=== PATIENT | male | born 1945 | race Caucasian/White ===

== ENCOUNTER 2020-12-03 08:12 | Emergency (ER) | payer OTHER ==
[2020-12-03] MEDS ORDERED: Dextrose 5%-0.9% NaCl 1,000 ML IV SCH (08:45)
--- NOTE | 2020-12-03 08:45 | EDM.PDOC ---
ED HPI GENERAL MEDICAL PROBLEM - General Chief Complaint: Neurological Problem Stated Complaint: COLD SWEATS, FATIGUE,DIZZY Time Seen by Provider: 12/03/20 08:37 Source of Information: Reports: Patient History Limitations: Reports: No Limitations - History of Present Illness INITIAL COMMENTS - FREE TEXT/NARRATIVE: 75-year-old male presents to the ED for evaluation of just generally not feeling well. He reports feeling lightheaded dizzy which I interpreted as orthostatic hypotension this morning. Associated cold sweats with mild diaphoresis. This is more last night and this morning. Feels generally weak. No recent changes to any of his medications. Patient is an asthmatic/COPD patient and uses Azmacort first thing in the morning and albuterol inhaler as a rescue inhaler as needed. He is on amlodipine which he takes in the morning with half a tablet of metoprolol and the other half of metoprolol in the evening. Patient has BPH with elevated PSA has had biopsies x2 with no findings of cancer. Patient admits that he does feel anxious about traveling at this point time. They are traveling from [facility] with his son and daughter. He is not doing much of the driving. He states he felt very anxious last evening and did not sleep at all. He has some insight that he is feeling overly anxious which has not been a problem in the past. He has taken his medications this morning but has not eaten any breakfast. I cannot get any history of vertigo or associated nausea or vomiting. Of note patient has completed both of his COVID- 19 vaccines with the last one given in August of this year. Onset: Sudden Onset Date: 12/02/20 (Symptoms began last evening after 1900 hrs.) Duration: Hour(s):, Constant, Other (Unable to sleep all night due to feeling anxious.) Location: Reports: Generalized (Neurolysed anxiety with feeling of cold sweats and weakness. Associated dizziness with no vertigo.) Quality: Reports: Other (Primarily dizziness which I interpreted as orthostatic hypotension) Severity: Moderate Improves with: Reports: None Worsens with: Reports: None Context: Denies: Activity, Exercise, Lifting, Sick Contact, Trauma, Other Associated Symptoms: Reports: Fever/Chills (Sweats.), Loss of Appetite, Malaise, Weakness. 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) (None and no new medications have been introduced into his treatment plan.) - Related Data Allergies Allergy/AdvReac Type Severity Reaction Status Date / Time [id number]-Cgr-Oao Reductase Allergy Cannot Verified 12/03/20 08:26 Inhibitor Remember Home Meds: Home Meds LORazepam [Ativan] 1 mg PO DAILY PRN #10 tablet 12/03/20 [Rx] Past Medical History Cardiovascular History: Reports: High Cholesterol, Hypertension Respiratory History: Reports: Asthma, COPD Neurological History: Reports: Neuropathy, Peripheral Social & Family History - Tobacco Use Tobacco Use Status *Q: Never Tobacco User - Recreational Drug Use Recreational Drug Use: No - Living Situation & Occupation Living situation: Reports: Occupation: Retired Social History Comment: Currently traveling with his son and daughter [place] from [facility] ROS GENERAL - Review of Systems Review Of Systems: See Below Constitutional: Reports: Malaise, Weakness, Fatigue, Diaphoresis (Cold sweats.), Decreased Appetite. Denies: Fever, Chills, Weight Loss HEENT: Reports: Glasses Respiratory: Reports: Shortness of Breath, Wheezing, Cough. Denies: Pleuritic Chest Pain, Sputum, Hemoptysis, Other Cardiovascular: Reports: Blood Pressure Problem. Denies: Chest Pain (Occasional), Claudication, Edema, Lightheadedness, Orthopnea Endocrine: Reports: No Symptoms GI/Abdominal: Reports: No Symptoms. Denies: Abdominal Pain, Anorexia, Black Stool, Bloody Stool, Constipation, Diarrhea, Decreased Appetite, Difficulty Swallowing, Distension, Flatus, Hematemesis, Hematochezia, Mucous in Stool, Nausea, Stool Incontinence, Vomiting : Reports: Frequency, Other (Nocturia x2. Chronically elevated PSA with biopsies of his prostate done twice with no positive findings) Musculoskeletal: Denies: Neck Pain, Shoulder Pain, Arm Pain, Back Pain, Hand Pain, Leg Pain, Foot Pain, Joint Pain, Joint Swelling, Muscle Pain Skin: Reports: No Symptoms Neurological: Reports: Dizziness (Feeling lightheaded), Weakness. Denies: Confusion, Headache, Numbness, Paresthesia, Pre-Existing Deficit, Seizure, Syncope, Tingling, Tremors, Trouble Speaking, Difficulty Walking, Change in Speech, Gait Disturbance, Other Psychiatric: Reports: Anxiety Hematologic/Lymphatic: Reports: No Symptoms (Admits to feeling anxious.) Immunologic: Reports: No Symptoms ED EXAM, GENERAL - Physical Exam Exam: See Below Exam Limited By: No Limitations General Appearance: Alert, WD/WN, Anxious, Other (Mildly anxious. Temperature is 36.0. Heart rate 58 in sinus respiratory is 18 with O2 sats of 97%. Initial BP was elevated 187/84 but second 1 came down to 144/80.) Eye Exam: Bilateral Eye: Normal Inspection (No scleral icterus or blepharal pallor.), PERRL Ears: Normal TMs Throat/Mouth: Normal Inspection, Normal Lips, Normal Oropharynx, Other Head: Atraumatic, Normocephalic (Tongue is mildly dry.) Neck: Normal Inspection, Supple, Non-Tender, Full Range of Motion. No: Carotid Bruit, Lymphadenopathy (L), Lymphadenopathy (R) Respiratory/Chest: No Respiratory Distress, Lungs Clear, Normal Breath Sounds, No Accessory Muscle Use. No: Wheezing Cardiovascular: Normal Peripheral Pulses, Regular Rate, Rhythm, No Edema, No Gallop, No Murmur, No Rub Peripheral Pulses: 2+: Carotid (L), Carotid (R), Posterior Tibial (L), Posterior Tibial (R), Dorsalis Pedis (L), Dorsalis Pedis (R) GI/Abdominal: Normal Bowel Sounds, Soft, Non-Tender, No Organomegaly, No Abnormal Bruit, No Mass, Pelvis Stable Back Exam: Normal Inspection, Full Range of Motion. No: CVA Tenderness (L), CVA Tenderness (R) Extremities: Normal Inspection, Normal Range of Motion, Non-Tender, No Pedal Edema Neurological: Alert, Oriented, CN II-XII Intact, Normal Cognition, No Motor/Sensory Deficits Psychiatric: Anxious Skin Exam: Warm (Mildly anxious.), Dry, Intact, Normal Color, No Rash #1 Interpretation EKG Date: 12/03/20 Time: 08:57 Rhythm: Other Rate (Beats/Min): 57 [place]: Normal P-Wave: Present QRS: Normal ST-T: Normal QT: Normal EKG Interpretation Comments: Normal ECG Course - Vital Signs Last Recorded V/S: Last Vital Signs Temp 36.0 C L 12/03/20 08:22 Pulse 58 L 12/03/20 08:22 Resp 18 12/03/20 08:22 BP 187/84 H 12/03/20 08:22 Pulse Ox 97 12/03/20 08:22 - Orders/Labs/Meds Orders: Active Orders 24 hr Category Date Time Status EKG Documentation Completion [RC] STAT Care 12/03/20 08:46 Active Dextrose 5%-0.9% NaCl [Dextrose 5%-Normal Saline] 1,000 Med 12/03/20 08:45 Active ml IV ASDIRECTED Medication Orders Dextrose/Sodium Chloride (Dextrose 5%-Normal Saline) 1,000 mls @ 500 mls/hr IV ASDIRECTED NILSON Last Admin: 12/03/20 09:04 Dose: 500 mls/hr Documented by: IGGY Labs: Laboratory Tests 12/03/20 12/03/20 12/03/20 Range/Units 08:35 09:09 09:09 WBC 7.61 (4.23-9.07) K/mm3 RBC 4.73 (4.63-6.08) M/mm3 Hgb 14.7 (13.7-17.5) gm/dl Hct 41.4 (40.1-51.0) % MCV 87.5 (79.0-92.2) fl MCH 31.1 (25.7-32.2) pg MCHC 35.5 (32.2-35.5) g/dl RDW Std Deviation 40.5 (35.1-43.9) fL Plt Count 162 L (163-337) K/mm3 MPV 10.6 (9.4-12.3) fl Neut % (Auto) 63.3 (34.0-67.9) % Lymph % (Auto) 26.7 (21.8-53.1) % [place] % (Auto) 6.7 (5.3-12.2) % Eos % (Auto) 2.6 (0.8-7.0) Baso % (Auto) 0.3 (0.1-1.2) % Neut # (Auto) 4.82 (1.78-5.38) K/mm3 Lymph # (Auto) 2.03 (1.32-3.57) K/mm3 [place] # (Auto) 0.51 (0.30-0.82) K/mm3 Eos # (Auto) 0.20 (0.04-0.54) K/mm3 Baso # (Auto) 0.02 (0.01-0.08) K/mm3 PT 11.3 (9.7-12.0) SECONDS INR 1.06 APTT 26.2 (21.7-31.4) SECONDS Sodium (136-145) mEq/L Potassium (3.5-5.1) mEq/L Chloride (98-107) mEq/L Carbon Dioxide (21-32) mEq/L Anion Gap (5-15) BUN (7-18) mg/dL Creatinine (0.7-1.3) mg/dL Est Cr Clr Drug Dosing mL/min Estimated GFR (MDRD) (>60) mL/min BUN/Creatinine Ratio (14-18) Glucose (70-99) mg/dL Calcium (8.5-10.1) mg/dL Magnesium (1.8-2.4) mg/dL Total Bilirubin (0.2-1.0) mg/dL AST (15-37) U/L ALT (16-63) U/L Alkaline Phosphatase (46-116) U/L Troponin I (0.00-0.056) ng/mL C-Reactive Protein (<1.0) mg/dL NT-Pro-B Natriuret Pep (0-125) pg/mL Total Protein (6.4-8.2) g/dl Albumin (3.4-5.0) g/dl Globulin gm/dL Albumin/Globulin Ratio (1-2) Urine Color Yellow (Yellow) Urine Appearance Clear (Clear) Urine pH 7.5 (5.0-8.0) Ur Specific [place] 1.020 (1.005-1.030) Urine Protein Negative (Negative) Urine Glucose (UA) Negative (Negative) Urine Ketones Negative (Negative) Urine Occult Blood Negative (Negative) Urine Nitrite Negative (Negative) Urine Bilirubin Negative (Negative) Urine Urobilinogen 0.2 (0.2-1.0) Ur Leukocyte Esterase Negative (Negative) Urine RBC 0-5 (0-5) /hpf Urine WBC Not seen (0-5) /hpf Ur Squamous Epith Cells Not seen (0-5) /hpf Urine Bacteria Not seen (FEW) /hpf Urine Mucus Not seen (FEW) /hpf 12/03/20 12/03/20 Range/Units 09:09 09:09 WBC (4.23-9.07) K/mm3 RBC (4.63-6.08) M/mm3 Hgb (13.7-17.5) gm/dl Hct (40.1-51.0) % MCV (79.0-92.2) fl MCH (25.7-32.2) pg MCHC (32.2-35.5) g/dl RDW Std Deviation (35.1-43.9) fL Plt Count (163-337) K/mm3 MPV (9.4-12.3) fl Neut % (Auto) (34.0-67.9) % Lymph % (Auto) (21.8-53.1) % [place] % (Auto) (5.3-12.2) % Eos % (Auto) (0.8-7.0) Baso % (Auto) (0.1-1.2) % Neut # (Auto) (1.78-5.38) K/mm3 Lymph # (Auto) (1.32-3.57) K/mm3 [place] # (Auto) (0.30-0.82) K/mm3 Eos # (Auto) (0.04-0.54) K/mm3 Baso # (Auto) (0.01-0.08) K/mm3 PT (9.7-12.0) SECONDS INR APTT (21.7-31.4) SECONDS Sodium 140 (136-145) mEq/L Potassium 3.9 (3.5-5.1) mEq/L Chloride 104 (98-107) mEq/L Carbon Dioxide 24 (21-32) mEq/L Anion Gap 15.9 H (5-15) BUN 12 (7-18) mg/dL Creatinine 0.8 (0.7-1.3) mg/dL Est Cr Clr Drug Dosing 79.56 mL/min Estimated GFR (MDRD) > 60 (>60) mL/min BUN/Creatinine Ratio 15.0 (14-18) Glucose 118 H (70-99) mg/dL Calcium 8.8 (8.5-10.1) mg/dL Magnesium 2.2 (1.8-2.4) mg/dL Total Bilirubin 0.9 (0.2-1.0) mg/dL AST 21 (15-37) U/L ALT 28 (16-63) U/L Alkaline Phosphatase 65 (46-116) U/L Troponin I < 0.017 (0.00-0.056) ng/mL C-Reactive Protein <0.2 (<1.0) mg/dL NT-Pro-B Natriuret Pep 50 (0-125) pg/mL Total Protein 7.4 (6.4-8.2) g/dl Albumin 4.0 (3.4-5.0) g/dl Globulin 3.4 gm/dL Albumin/Globulin Ratio 1.2 (1-2) Urine Color (Yellow) Urine Appearance (Clear) Urine pH (5.0-8.0) Ur Specific [place] (1.005-1.030) Urine Protein (Negative) Urine Glucose (UA) (Negative) Urine Ketones (Negative) Urine Occult Blood (Negative) Urine Nitrite (Negative) Urine Bilirubin (Negative) Urine Urobilinogen (0.2-1.0) Ur Leukocyte Esterase (Negative) Urine RBC (0-5) /hpf Urine WBC (0-5) /hpf Ur Squamous Epith Cells (0-5) /hpf Urine Bacteria (FEW) /hpf Urine Mucus (FEW) /hpf Meds: Medications Generic Name Dose Route Start Last Admin Trade Name Freq PRN Reason Stop Dose Admin Dextrose/Sodium Chloride 1,000 mls @ 500 mls/hr 12/03/20 08:45 12/03/20 09:04 Dextrose 5%-Normal Saline IV 500 mls/hr ASDIRECTED NILSON Administration Discontinued Medications Generic Name Dose Route Start Last Admin Trade Name Freq PRN Reason Stop Dose Admin Lorazepam 0.5 mg 12/03/20 08:59 12/03/20 09:17 Lorazepam 2 Mg/Ml Sdv IVPUSH 12/03/20 09:00 0.5 mg ONETIME ONE Administration - Radiology Interpretation Free Text/Narrative:: 75-year-old male presents to the ED with nonspecific symptoms of feeling dizzy, lightheaded associate with cold sweats and diaphoresis last evening. Could not sleep last night and admits that he does feel anxious. He is traveling with his son and daughter from [facility] [place]. He is not doing any of the driving. No new medications. He has a history of hypertension and COPD/asthma using Azmacort and albuterol as needed and amlodipine and metoprolol for blood pressure control. Denies fever or chills. Denies nausea vomiting. Denies feeling hungry almost lost his appetite. Patient does appear tired on initial exam. Examination was otherwise normal with no respiratory wheezing. Cardiac function appears normal. He will have routine labs performed with the chest x- ray and ECG. IV will be D5 normal saline at 500 mils per hour since he is not had any breakfast yet this morning. Will give him Ativan 0.5mg IV for anxiety relief. - Re-Assessments/Exams Free Text/Narrative Re-Assessment/Exam: 12/03/20 09:45 Hematology reveals a normal white count at 7.61. Differential shows 63% neutrophils. Hemoglobin is 14.7 with hematocrit of 41.4. Platelet count 262,000 slightly low. Urinalysis is negative with no signs of infection. Portable chest x-ray reveals normal mediastinum and cardiac silhouette. The lungs suggest a very mild diffuse vascular congestion pattern with no pleural effusion. Possibly magnified per portable technique no pneumothorax. Lung parenchyma are otherwise clear. 12/03/20 10:12 Chemistry reveals a sodium of 140 and a potassium of 3.9. Chloride is 104 the bicarb of 24. Anion gap is minimally elevated at 15.9. BUN is 12 with a creatinine of 0.8 and a GFR greater than 60. Glucose 118. Calcium 8.8. Magnesium 2.2. Liver function normal. Troponin I is less than 0.017. C- reactive protein is less than 0.2. BNP is 50. Total protein 7.4 with an albumin fraction of 4.0. Departure - Departure Time of Disposition: 10:47 Disposition: Home, Self-Care 01 Condition: Fair Clinical Impression: Fluid volume depletion, Anxiety about health - Discharge Information *PRESCRIPTION DRUG MONITORING PROGRAM REVIEWED*: Not Applicable *COPY OF PRESCRIPTION DRUG MONITORING REPORT IN PATIENT NICOLAS: Not Applicable Prescriptions: LORazepam [Ativan] 1 mg PO DAILY PRN #10 tablet PRN Reason: Insomnia Referrals: PCP,Not In Area [Primary Care Provider] - Forms: ED Department Discharge Additional Instructions: Evaluation in the emergency room today in regards to generally not feeling well with shortness of breath cold sweats dizziness and generalized weakness. Not able to sleep at all last night due to insomnia and perceived anxiety about health particular with traveling far from home. Complete lab work-up revealed no evidence of heart related illness. Kidneys and liver are functioning normally. Chest x-ray was normal. You felt better after IV fluids suggesting that you did have some volume depletion. Suggest drinking a Gatorade or 2 daily while traveling which will maintain hydration with full electrolyte balance. I have written a prescription for Ativan or lorazepam 1 mg tablets. May take 1/2 to 1 tablet at bedtime as needed to relieve anxiety and aid sleep as needed. Follow-up with personal physician when you get back home if any further problems occur. Sepsis Event Note (ED) - Evaluation Sepsis Screening Result: No Definite Risk - Focused Exam Vital Signs: Vital Signs Temp Pulse Resp BP Pulse Ox 12/03/20 08:22 36.0 C L 58 L 18 187/84 H 97 - My Orders Last 24 Hours: My Active Orders 12/03/20 08:45 Dextrose 5%-0.9% NaCl [Dextrose 5%-Normal Saline] 1,000 ml IV ASDIRECTED 12/03/20 08:46 EKG Documentation Completion [RC] STAT - Assessment/Plan Last 24 Hours: My Active Orders 12/03/20 08:45 Dextrose 5%-0.9% NaCl [Dextrose 5%-Normal Saline] 1,000 ml IV ASDIRECTED 12/03/20 08:46 EKG Documentation Completion [RC] STAT
[2020-12-03] MEDS ORDERED: LORazepam 2 MG/ML SDV IVPUSH ONE (08:59)
--- NOTE | 2020-12-03 09:39 | CR ---
Chest: Portable view of the chest was obtained. Comparison: No prior chest imaging is available. Heart size and mediastinum are normal. Lungs are clear with no acute parenchymal change. Minimal deformity of the left clavicle is seen most likely representing old healed fracture. Scattered endplate spurring is noted within the spine. No acute osseous abnormality is appreciated. Impression: 1. Nothing acute is seen on portable chest x-ray. Diagnostic code #2
== END 2020-12-03 10:58 | disposition home or self-care (01) ==
LOC: JD.ED 08:12
DX: F41.9 Anxiety disorder, unspecified (principal); E86.9 Volume depletion, unspecified; E78.00 Pure hypercholesterolemia, unspecified; I10 Essential (primary) hypertension; J44.9 Chronic obstructive pulmonary disease, unspecified; Z88.8 Allergy status to other drugs, medicaments and biological substances
CPT/HCPCS: 36415; 71045; 80053; 81001; 83735; 83880; 84484; 85025; 85610; 85730; 86140; 93005; 96374; 99285; J2060; J7042; 93010; 99283